=== PATIENT | female | born 1975 | race Caucasian/White ===

== ENCOUNTER 2021-07-04 17:34 | Emergency (ER) | payer MEDICAID ==
[2021-07-04 18:14] LABS: BILIRUBIN,URINE NEGATIVE (NEGATIVE); KETONES,URINE (UA) NEGATIVE (NEGATIVE); PH,URINE 5.5 PH (5.0-7.5); UROBILINOGEN,URINE >=8.0 E.U./dL (NORMAL)
[2021-07-04 18:15] LABS: CLARITY,URINE HAZY (CLEAR)
[2021-07-04 18:25] LABS: BACTERIA,URINE Rare /HPF (None Seen); RBC,URINE TNTC /HPF (0-5); SQUAMOUS EPITHELIAL CELL,UR FEW Squamous (<= Few); WBC,URINE 0-3 /HPF (0-5)
[2021-07-04] MEDS ORDERED: KETOROLAC 30 MG/ML VIAL IVP STA (18:52)
[2021-07-04] MEDS ORDERED: iohexoL-300 100 ML VIAL ONE (19:03)
--- NOTE | 2021-07-04 19:07 | ED Physician Documentation ---
History of Present Illness - Stated complaint Stated Complaint: FEMALE - Chief complaint Chief Complaint: Abd Pain - History obtained from History obtained from: Patient - History of Present Illness Timing: Other (1 month) Pain level max: 6 Pain level now: 5 - Additonal information Additional information: Patient is a 46-year-old female who complains of lower abdominal/pelvic pain along with dysuria for the past month. Has been seen by her PCP several times with multiple negative urinalyses. She states she has been taking Azo and this sometimes helps. No diarrhea or constipation. No vaginal bleeding or discharge. No STD exposure. has been on pyridium for 3 weeks Review of Systems Ten Systems: 10 systems reviewed and negative Constitutional: denies: Fever, Chills Nose: denies: Rhinorrhea / runny nose, Congestion Throat: denies: Sore throat Cardiac: denies: Chest pain / pressure GI: denies: Vomiting, Diarrhea, Hematemesis, Bloody / black stool : reports: Dysuria, Frequency Skin: denies: Rash Musculoskeletal: denies: Neck pain, Back pain Neurologic: denies: Headache PD PAST MEDICAL HISTORY - Past Medical History Past Medical History: Yes - Present Medications Home Medications: Ambulatory Orders Medication Instructions Recorded Confirmed HYDROcod/ACETAM 5/325 [[place] 5/325] 1 - 2 ea PO Q6H PRN #14 tablet 07/04/21 cephALEXin [Keflex] 500 mg PO Q6H #20 cap 07/04/21 - Allergies Allergies/Adverse Reactions: Allergies Allergy/AdvReac Type Severity Reaction Status Date / Time Sulfa (Sulfonamide Allergy Unknown Verified 07/04/21 17:41 Antibiotics) PD ED PE NORMAL - Vitals Vital signs reviewed: Yes - General General: Alert and oriented X 3, No acute distress - HEENT HEENT: PERRL - Neck Neck: Supple, no meningeal sign - Cardiac Cardiac: RRR, Strong equal pulses - Respiratory Respiratory: No respiratory distress, Clear bilaterally - Abdomen Abdomen: Soft, Non tender, Non distended - Back Back: No CVA TTP - Derm Derm: Warm and dry - Extremities Extremities: No edema - Neuro Neuro: Alert and oriented X 3 - Psych Psych: Normal mood, Normal affect Results - Vitals Vitals: Vital Signs - 24 hr 07/04/21 07/04/21 07/04/21 17:41 18:31 20:00 Temperature 36.5 C 36.5 C Heart Rate 120 H 100 98 Respiratory 16 16 18 Rate Blood Pressure 117/93 H 120/87 H 129/88 H O2 Saturation 96 98 100 Oxygen O2 Source Room air - Labs Labs: Laboratory Tests 07/04/21 07/04/21 07/04/21 18:03 18:30 19:20 WBC 12.6 H RBC 4.86 Hgb 14.2 Hct 43.1 MCV 88.7 MCH 29.2 MCHC 32.9 RDW 13.3 Plt Count 375 MPV 9.2 Neut # (Auto) 9.6 H Lymph # (Auto) 2.1 [place] # (Auto) 0.7 Eos # (Auto) 0.1 Baso # (Auto) 0.1 Absolute Nucleated RBC 0.00 Nucleated RBC % 0.0 Sodium Potassium Chloride Carbon Dioxide Anion Gap BUN Creatinine Estimated GFR (MDRD) Glucose Calcium Total Bilirubin AST ALT Alkaline Phosphatase Total Protein Albumin Globulin Albumin/Globulin Ratio Lipase Urine Color ORANGE Urine Clarity HAZY Urine pH 5.5 Ur Specific [place] 1.015 Urine Protein Urine Glucose (UA) Urine Ketones NEGATIVE Urine Occult Blood Urine Nitrite Urine Bilirubin NEGATIVE Urine Urobilinogen >=8.0 H Ur Leukocyte Esterase Urine RBC TNTC H Urine WBC 0-3 Ur Squamous Epith Cells FEW Squamous Urine Bacteria Rare Ur Microscopic Review INDICATED Urine Culture Comments Not Reportable C. glabrata (PCR) NEGATIVE C. krusei (PCR) NEGATIVE Adriana species DNA NEGATIVE T. vaginalis (PCR) NEGATIVE Bact Vaginosis (PCR) NEGATIVE 07/04/21 19:20 WBC RBC Hgb Hct MCV MCH MCHC RDW Plt Count MPV Neut # (Auto) Lymph # (Auto) [place] # (Auto) Eos # (Auto) Baso # (Auto) Absolute Nucleated RBC Nucleated RBC % Sodium 137 Potassium 3.6 Chloride 103 Carbon Dioxide 23 Anion Gap 11.0 BUN 8 Creatinine 0.8 Estimated GFR (MDRD) 78 L Glucose 96 Calcium 8.9 Total Bilirubin 0.5 AST 29 ALT 40 Alkaline Phosphatase 74 Total Protein 7.0 Albumin 4.3 Globulin 2.7 Albumin/Globulin Ratio 1.6 Lipase 26 Urine Color Urine Clarity Urine pH Ur Specific [place] Urine Protein Urine Glucose (UA) Urine Ketones Urine Occult Blood Urine Nitrite Urine Bilirubin Urine Urobilinogen Ur Leukocyte Esterase Urine RBC Urine WBC Ur Squamous Epith Cells Urine Bacteria Ur Microscopic Review Urine Culture Comments C. glabrata (PCR) C. krusei (PCR) Adriana species DNA T. vaginalis (PCR) Bact Vaginosis (PCR) - Rads (name of study) CT abdomen pelvis Radiology: Final report received, EMP read contemporaneously, See rad report PD MEDICAL DECISION MAKING - ED course Complexity details: reviewed results, re-evaluated patient, considered differential, d/w patient ED course: Unclear etiology of the patient's symptoms. She has been on Pyridium for over 3 weeks, we will have her stop this. Given the bladder wall thickening, we will place her on antibiotics to see if this helps. We will have her follow-up with urology for further care. Patient counseled regarding signs and symptoms for which I believe and urgent re-evaluation would be necessary. Patient with good u nderstanding of and agreement to plan and is comfortable going home at this time This document was made in part using voice recognition software. While efforts are made to proofread this document, sound alike and grammatical errors may occur. IMPRESSION: 1. Mild colonic diverticulosis without acute diverticulitis. 2. No evidence of appendicitis. 3. No evidence of obstructive uropathy. 4. Suggestion of mild bladder wall thickening although evaluation is limited by incomplete distention. Recommend correlation with urinalysis for possible cystitis. Departure - Departure Disposition: 01 Home, Self Care Clinical Impression: Pelvic pain Condition: Good Instructions: ED Dysuria Uncertain Cause Follow-Up: Cindy Sin MD [Primary Care Provider] - Within 1 week Prescriptions: cephALEXin [Keflex] 500 mg PO Q6H #20 cap HYDROcod/ACETAM 5/325 [[place] 5/325] 1 - 2 ea PO Q6H PRN #14 tablet PRN Reason: Pain Comments: Please follow-up with your doctor for further care. Your CT scan, bacterial vaginitis panel, urinalysis and laboratory testing did not show any acute abnormalities other than a thickened bladder wall. It is recommended that you follow-up with urology as your condition could be due to something such as interstitial cystitis. Return if you worsen. I am prescribing a short course of narcotic pain medication for you. These are potentially dangerous and addictive medications that should be used carefully. These medications may constipate you. Take an ttzj-guk-edhewrb stool softener (docusate) twice daily with plenty of water while taking these medications. If you go 24 hours without a bowel movement, take edof-qmh-qgqxtaq miralax, per package instructions. Do not drink or drive while taking these medications. If you received narcotic or sedating medications while in the emergency department, do not drive for 24 hours. Store this medication in a safe, secure place and out of reach of children. It is a violation of federal law to give or sell this medication to another person or to use in a manner other than prescribed. The ED will not refill narcotic prescriptions, including prescriptions lost or stolen. To dispose of unwanted medications: 1. [facility] at [address] in [place] has a medication drop box. They accept prescription medications (in pill form) Thursday through Thursday 9:00 a.m. to 5:00 p.m. 2. The [facility] [employer] Department accepts prescription medications (in pill form only) for disposal year round. Call for more information. 3. Contact the [facility] for the next [facility] sponsored prescription drug collection event. , [phone], or [phone];
[2021-07-04 20:01] LABS: BASOPHILS # (AUTO) 0.1 10^3/uL (0.0-0.1); EOSINOPHILS # (AUTO) 0.1 10^3/uL (0.0-0.7); EOSINOPHILS % (AUTO) 0.6 %; HCT - HEMATOCRIT 43.1 % (37.0-47.0); HGB - HEMOGLOBIN 14.2 g/dL (12.0-16.0); LYMPHOCYTES # (AUTO) 2.1 10^3/uL (1.5-3.5); LYMPHOCYTES % (AUTO) 16.4 %; MEAN CORPUSCULAR HEMOGLOBIN 29.2 pg (27.0-31.0); MEAN CORPUSCULAR HGB CONC 32.9 g/dL (32.0-36.0); MEAN CORPUSCULAR VOLUME 88.7 fL (81.0-99.0); MEAN PLATELET VOLUME 9.2 fL (7.9-10.8); MONOCYTES # (AUTO) 0.7 10^3/uL (0.0-1.0); MONOCYTES % (AUTO) 5.9 %; NEUTROPHILS # (AUTO) 9.6 10^3/uL (1.5-6.6); NEUTROPHILS % (AUTO) 75.5 %; PLT - PLATELET COUNT 375 10^3/uL (130-450); RED BLOOD COUNT 4.86 10^6/uL (4.20-5.40); RED CELL DISTRIBUTION WIDTH 13.3 % (12.0-15.0); WHITE BLOOD COUNT 12.6 x10^3/uL (4.8-10.8)
[2021-07-04 20:18] LABS: ALBUMIN 4.3 g/dL (3.2-5.5); ALBUMIN/GLOBULIN RATIO 1.6 (1.0-2.2); BILIRUBIN,TOTAL 0.5 mg/dL (0.2-1.0); CALCIUM 8.9 mg/dL (8.5-10.3); CREATININE 0.8 mg/dL (0.4-1.0); POTASSIUM 3.6 mmol/L (3.5-5.0)
[2021-07-04 21:03] LABS: BACTERIAL VAGINOSIS DNA NEGATIVE (NEGATIVE); CANDIDA GLABRATA DNA NEGATIVE (NEGATIVE); CANDIDA GROUP DNA NEGATIVE (NEGATIVE); CANDIDA KRUSEI DNA NEGATIVE (NEGATIVE); TRICHOMONAS VAGINALIS DNA NEGATIVE (NEGATIVE)
[2021-07-04] MEDS ORDERED: iohexoL-300 100 ML VIAL IVP ONE (21:03)
--- NOTE | 2021-07-04 21:13 | CT Report ---
PROCEDURE: Abdomen/Pelvis W INDICATIONS: LLQ Abdominal pain, diverticulitis suspected CONTRAST: IV CONTRAST: Isovue 300 ml: 100 PO CONTRAST: *NO PO CONTRAST TECHNIQUE: After the administration of postsurgical changes are partially visualized within the lower cervical s pine contrast, 5 mm thick sections acquired from the diaphragms to the symphysis. 5 mm thick coronal and sagittal reformats were acquired. For radiation dose reduction, the following was used: automa suze exposure control, adjustment of mA and/or kV according to patient size. COMPARISON: None. FINDINGS: Image quality: Excellent. ABDOMEN: Lung bases: There are a few patchy areas of atelectasis in the lung bases. Heart size is normal. Solid organs: Evaluation of the liver demonstrates no focal hepatic lesions. Gallbladder appears with in normal limits without calcified gallstones. Biliary system is non dilated. The spleen is normal i n size. Pancreas enhances normally without peripancreatic fat stranding or fluid collections. No adr enal nodules. Kidneys demonstrate no hydronephrosis. No hydroureter or obstructing ureteral stones. There are calcifications in the pelvis bilaterally likely representing phleboliths. Peritoneum and bowel: Small bowel loops demonstrate normal wall thickness and caliber. No evidence of appendicitis. There is moderate colonic stool distention suggestive of constipation. A few colonic d iverticula are present without acute diverticulitis. No free fluid or air. Nodes and vessels: No retroperitoneal or mesenteric adenopathy by size criteria. Aorta and inferior vena cava are normal in size. Miscellaneous: No ventral hernias. PELVIS: Genitourinary: The urinary bladder is partially distended, with suggestion of mild concentric wall th ickening. There is minimal associated fat stranding. Miscellaneous: No inguinal hernias or adenopathy. Bones: No suspicious bony lesions. No vertebral body compression fractures. IMPRESSION: 1. Mild colonic diverticulosis without acute diverticulitis. 2. No evidence of appendicitis. 3. No evidence of obstructive uropathy. 4. Suggestion of mild bladder wall thickening although evaluation is limited by incomplete distention . Recommend correlation with urinalysis for possible cystitis. Reviewed by: Ke Bernard MD on 07/04/2021 9:12 PM PST Approved by: Ke Bernard MD on 07/04/2021 9:12 PM PST Station ID: [id number]
[2021-07-04] MEDS ORDERED: cephALEXin 250 MG CAPSULE PO STA (21:44)
[2021-07-04 22:07] VITALS: BP 123/74
[2021-07-04 23:15] LABS: CHLAMYDIA TRACHOMATIS DNA NEGATIVE (NEGATIVE); NEISSERIA GONORRHOEAE DNA NEGATIVE (NEGATIVE); TRICHOMONAS VAGINALIS DNA NEGATIVE (NEGATIVE)
== END 2021-07-04 22:15 | disposition home or self-care (01) ==
LOC: ED 17:34
DX: R10.2 Pelvic and perineal pain (principal)
CPT/HCPCS: 36415; 74177; 80053; 81001; 83690; 85025; 87481; 87491; 87591; 87661; 87801; 96374; 99284; A9270; Q9967; 81003; 87086

== ENCOUNTER 2021-07-19 16:42 | Emergency (ER) | payer MEDICAID ==
[2021-07-19 17:24] LABS: BASOPHILS # (AUTO) 0.1 10^3/uL (0.0-0.1); EOSINOPHILS # (AUTO) 0.2 10^3/uL (0.0-0.7); EOSINOPHILS % (AUTO) 1.6 %; HCT - HEMATOCRIT 42.7 % (37.0-47.0); HGB - HEMOGLOBIN 13.7 g/dL (12.0-16.0); LYMPHOCYTES # (AUTO) 2.9 10^3/uL (1.5-3.5); LYMPHOCYTES % (AUTO) 28.6 %; MEAN CORPUSCULAR HEMOGLOBIN 28.7 pg (27.0-31.0); MEAN CORPUSCULAR HGB CONC 32.1 g/dL (32.0-36.0); MEAN CORPUSCULAR VOLUME 89.3 fL (81.0-99.0); MEAN PLATELET VOLUME 8.6 fL (7.9-10.8); MONOCYTES # (AUTO) 0.7 10^3/uL (0.0-1.0); NEUTROPHILS # (AUTO) 6.3 10^3/uL (1.5-6.6); PLT - PLATELET COUNT 322 10^3/uL (130-450); RED BLOOD COUNT 4.78 10^6/uL (4.20-5.40); RED CELL DISTRIBUTION WIDTH 13.2 % (12.0-15.0); WHITE BLOOD COUNT 10.3 x10^3/uL (4.8-10.8)
[2021-07-19] MEDS ORDERED: HYDROmorphone 1 MG/ML CARPUJECT IM STA (17:27)
--- NOTE | 2021-07-19 17:30 | ED Physician Documentation ---
History of Present Illness - Stated complaint Stated Complaint: FEMALE - Chief complaint Chief Complaint: Abd Pain - Additonal information Additional information: 46-year-old female presents emergency department for evaluation of persistent bladder pain and dysuria. This has been an ongoing problem for a number of months. Seen recently for similar. Urine did not suggest infection. There is suspicion that she could have interstitial cystitis. Her primary doctor has made a referral for her to urology. She did see the urologist about 1 week ago and the plan is for her to have a cystoscopy completed. However the urologist wanted further labs to be obtained which are pending. Patient states that she is using ibuprofen and Pyridium without relief of symptoms she is now out of hydrocodone. Pain is persistent and radiates to her back. No fevers. Review of Systems Constitutional: denies: Fever, Chills Eyes: reports: Reviewed and negative Ears: reports: Reviewed and negative Nose: reports: Reviewed and negative Cardiac: reports: Reviewed and negative Respiratory: reports: Reviewed and negative GI: reports: Abdominal Pain, Nausea, Vomiting : reports: Dysuria. denies: Hematuria Skin: denies: Rash, Lesions PD PAST MEDICAL HISTORY - Present Medications Home Medications: Ambulatory Orders Medication Instructions Recorded Confirmed HYDROcod/ACETAM 5/325 [[place] 5/325] 1 - 2 ea PO Q6H PRN #14 tablet 07/04/21 cephALEXin [Keflex] 500 mg PO Q6H #20 cap 07/04/21 HYDROcod/ACETAM 5/325 [[place] 5/325] 1 tablet PO BID PRN #10 tablet 07/19/21 - Allergies Allergies/Adverse Reactions: Allergies Allergy/AdvReac Type Severity Reaction Status Date / Time Sulfa (Sulfonamide Allergy Unknown Verified 07/19/21 16:56 Antibiotics) PD ED PE NORMAL - General General: Alert and oriented X 3, No acute distress, Well developed/nourished - HEENT HEENT: Atraumatic, Moist mucous membranes - Neck Neck: Supple, no meningeal sign, No adenopathy - Cardiac Cardiac: RRR, No murmur, No gallop - Respiratory Respiratory: No respiratory distress, Clear bilaterally - Abdomen Abdomen: Normal bowel sounds, Soft, Non tender (Suprapubic tenderness. No guarding or rebound.) Results - Vitals Vitals: Vital Signs - 24 hr 07/19/21 07/19/21 16:56 16:58 Temperature 37.3 C Heart Rate 120 H 125 H Respiratory 19 20 Rate Blood Pressure 154/87 H 126/86 H O2 Saturation 99 98 Oxygen O2 Source Room air - Labs Labs: Laboratory Tests 07/19/21 07/19/21 07/19/21 17:15 17:17 17:17 WBC 10.3 RBC 4.78 Hgb 13.7 Hct 42.7 MCV 89.3 MCH 28.7 MCHC 32.1 RDW 13.2 Plt Count 322 MPV 8.6 Neut # (Auto) 6.3 Lymph # (Auto) 2.9 [place] # (Auto) 0.7 Eos # (Auto) 0.2 Baso # (Auto) 0.1 Absolute Nucleated RBC 0.00 Nucleated RBC % 0.0 Sodium 135 Potassium 3.4 L Chloride 101 Carbon Dioxide 24 Anion Gap 10.0 BUN 9 Creatinine 0.8 Estimated GFR (MDRD) 78 L Glucose 91 Calcium 9.1 Total Bilirubin 0.5 AST 30 ALT 41 Alkaline Phosphatase 67 Total Protein 7.1 Albumin 4.3 Globulin 2.8 Albumin/Globulin Ratio 1.5 Lipase 26 Urine Color ORANGE Urine Clarity HAZY Urine pH Ur Specific [place] 1.025 Urine Protein Urine Glucose (UA) Urine Ketones Urine Occult Blood NEGATIVE Urine Nitrite Urine Bilirubin NEGATIVE Urine Urobilinogen Ur Leukocyte Esterase Urine RBC 0-5 Urine WBC 0-3 Ur Squamous Epith Cells MOD Squamous H Urine Bacteria Few Ur Microscopic Review INDICATED Urine Culture Comments Not Reportable Urine HCG, Qual NEGATIVE PD MEDICAL DECISION MAKING - ED course Complexity details: reviewed results, re-evaluated patient, d/w patient ED course: 46-year-old female presents emergency department with persistent lower bladder pain. She was seen recently for similar. Had an unremarkable urine. CT scan showed some bladder inflammation. She was prescribed some Keflex which it did not Improve her symptoms. She has followed up with the urologist. They are planning to do a cystoscopy. Today her screening labs Showed no acute worrisome findings. No findings suggest infection in the urine. Given recently unremarkable CT scan will defer further imaging today. Very limited amount of hydrocodone has been sent to the [facility] pharmacy. Patient was made aware that the emergency department would not refill this again for this concern. She is encouraged close follow-up with her primary care doctor as well as her urologist. Emergent return precautions otherwise discussed. Departure - Departure Disposition: 01 Home, Self Care Clinical Impression: Dysuria Condition: Stable Record reviewed to determine appropriate education?: Yes Instructions: Cystitis Interstitial, Cystitis Interstitial Life Changes Prescriptions: HYDROcod/ACETAM 5/325 [[place] 5/325] 1 tablet PO BID PRN #10 tablet PRN Reason: Pain Comments: Soraya alan are seen in the emergency department today for lower abdominal and bladder pain. As we discussed at the bedside this sounds a lot like interstitial cystitis. I am glad that you have been seen by urologist. Continue very close follow-up. Your labs today do not show any worrisome findings. A very limited amount of hydrocodone has been sent to the [facility] pharmacy. The emergency department will not be able to refill this again in the future. I encourage you to discuss your longer-term pain management with your primary doctor. I am prescribing a short course of narcotic pain medication for you. These are potentially dangerous and addictive medications that should be used carefully. These medications may constipate you. Take an azjl-nij-qsixtnf stool softener (docusate) twice daily with plenty of water while taking these medications. If you go 24 hours without a bowel movement, take kbmt-ruc-kxnkqug miralax, per package instructions. Do not drink or drive while taking these medications. If you received narcotic or sedating medications while in the emergency department, do not drive for 24 hours. Store this medication in a safe, secure place and out of reach of children. It is a violation of federal law to give or sell this medication to another person or to use in a manner other than prescribed. The ED will not refill narcotic prescriptions, including prescriptions lost or stolen. To dispose of unwanted medications: 1. [facility] at [address] in [place] has a medication drop box. They accept prescription medications (in pill form) Thursday through Thursday 9:00 a.m. to 5:00 p.m. 2. The [facility] Police Department accepts prescription medications (in pill form only) for disposal year round. Call for more information. 3. Contact the [facility] for the next [facility] sponsored prescription drug collection event. , [id number], or [id number]; Note that many narcotic pain relievers also contain Tylenol/acetaminophen. Please ensure that your total dose of acetaminophen from all sources does not exceed 3 g (3000 mg) per day.
[2021-07-19 17:37] LABS: ALBUMIN 4.3 g/dL (3.2-5.5); ALBUMIN/GLOBULIN RATIO 1.5 (1.0-2.2); BILIRUBIN,TOTAL 0.5 mg/dL (0.2-1.0); CALCIUM 9.1 mg/dL (8.5-10.3); CREATININE 0.8 mg/dL (0.4-1.0); POTASSIUM 3.4 mmol/L (3.5-5.0); TOTAL PROTEIN 7.1 g/dL (6.7-8.2)
[2021-07-19 17:52] LABS: BILIRUBIN,URINE NEGATIVE (NEGATIVE); OCCULT BLOOD,URINE NEGATIVE (NEGATIVE)
[2021-07-19 17:54] LABS: CLARITY,URINE HAZY (CLEAR)
[2021-07-19 18:11] LABS: BACTERIA,URINE Few /HPF (None Seen); HCG UR QUAL NEGATIVE; RBC,URINE 0-5 /HPF (0-5); SQUAMOUS EPITHELIAL CELL,UR MOD Squamous (<= Few); WBC,URINE 0-3 /HPF (0-5)
[2021-07-19 18:35] VITALS: BP 137/109
== END 2021-07-19 18:43 | disposition home or self-care (01) ==
LOC: ED 16:42
DX: R30.0 Dysuria (principal)
CPT/HCPCS: 36415; 80053; 81001; 81025; 83690; 85025; 96372; 99282; 99283; J1170; 81003; 87086

== ENCOUNTER 2021-12-11 08:00 | Outpatient (CLI) | payer MEDICAID | END 2021-12-11 23:59 | disposition home or self-care (01) | LOC: LAB.N 08:00 | PROVIDERS: ATTEND Family Medicine | DX: R30.0 Dysuria (principal) | CPT/HCPCS: 87086; 87181 ==

== ENCOUNTER 2022-11-13 20:42 | Emergency (ER) | payer MEDICAID ==
[2022-11-13 20:50] VITALS: BP 127/82
[2022-11-13] MEDS ORDERED: DEXAMETHASONE 10 MG/ML VIAL PO STA (21:11)
[2022-11-13] MEDS ORDERED: CHERRY SYRUP 10 ML UDC PO ONE (21:11)
--- NOTE | 2022-11-13 21:14 | ED Physician Documentation ---
History of Present Illness - Stated complaint Stated Complaint: ALLERGIC REACTION - Chief complaint Chief Complaint: General - History obtained from History obtained from: Patient, Family () - Additonal information Additional information: 47-year-old woman with history of multiple food allergies and drug allergies presents presents with urticarial rash to bilateral forearms as well as tingling and subjective swelling to lips starting just prior to arrival. Patient took 50 mg of Benadryl at home and then came straight here. Denies shortness of breath, nausea, vomiting, dizziness. She does experience some tingling in her feet but no rash. Review of Systems Constitutional: denies: Fever Cardiac: denies: Chest pain / pressure Respiratory: denies: Dyspnea, Wheezing GI: denies: Nausea, Vomiting Skin: reports: Rash PD PAST MEDICAL HISTORY - Past Medical History Past Medical History: No - Past Surgical History Past Surgical History: No - Present Medications Home Medications: Ambulatory Orders Medication Instructions Recorded Confirmed HYDROcod/ACETAM 5/325 [[place] 5/325] 1 - 2 ea PO Q6H PRN #14 tablet 07/04/21 cephALEXin [Keflex] 500 mg PO Q6H #20 cap 07/04/21 HYDROcod/ACETAM 5/325 [[place] 5/325] 1 tablet PO BID PRN #10 tablet 07/19/21 - Allergies Allergies/Adverse Reactions: Allergies Allergy/AdvReac Type Severity Reaction Status Date / Time Sulfa (Sulfonamide Allergy Unknown Verified 11/13/22 20:50 Antibiotics) - Social History Does the pt smoke?: No Smoking Status: Never smoker Does the pt drink ETOH?: No Does the pt have substance abuse?: No - Immunizations Immunizations are current?: Yes PD ED PE NORMAL - Vitals Vital signs reviewed: Yes - General General: Alert and oriented X 3, No acute distress, Well developed/nourished - HEENT HEENT: Atraumatic, PERRL, EOMI, Other (Good upper airway flow on neck auscultation) - Neck Neck: Supple, no meningeal sign - Cardiac Cardiac: RRR - Respiratory Respiratory: No respiratory distress, Clear bilaterally - Abdomen Abdomen: Other (no rash) - Back Back: Other (no rash) - Derm Derm: Other (erythematous rash and excoriations to BL forearms. ) - Extremities Extremities: No edema - Psych Psych: Normal mood, Normal affect Results - Vitals Vitals: Vital Signs - 24 hr 11/13/22 20:44 Temperature 36.5 C Heart Rate 110 H Respiratory 17 Rate Blood Pressure 127/82 H O2 Saturation 99 Oxygen O2 Source Room air PD Medical Decision Making - ED course ED course: 47-year-old woman presents with allergic reaction, possibly to avocado which she had earlier today and she states she is "slightly allergic to". She has visible rash to bilateral forearms as well as excoriations but no rash anywhere else. She states that her lips feel swollen but they are not visibly swollen. Tongue appears normal on exam. Will provide steroid one-time dose in addition to the Benadryl she did at home and monitor. Plan to discharge if feeling better with outpatient follow-up. Return precautions given. Departure - Departure Condition: Good Instructions: ED Urticaria Comments: You were seen in the emergency department for a rash that is likely an allergic reaction. You received 10 mg of oral Decadron, a steroid one-time medication that will stay in your system for 3 days. You should follow-up with your primary care provider for referral to allergy and immunology. Return to the emergency department for new or worsening symptoms or other concerns.
== END 2022-11-13 21:57 | disposition home or self-care (01) ==
LOC: ED 20:42
DX: L50.9 Urticaria, unspecified (principal)
CPT/HCPCS: 99282; 99283; A9270

== ENCOUNTER 2023-03-02 17:59 | Emergency (ER) | payer MEDICAID ==
[2023-03-02] MEDS ORDERED: KETOROLAC 60 MG/2 ML VIAL IM STA (19:05)
[2023-03-02] MEDS ORDERED: DROPERIDOL 5 MG/2 ML VIAL IM STA (19:05)
--- NOTE | 2023-03-02 19:15 | ED Physician Documentation ---
History of Present Illness - Stated complaint Stated Complaint: MCDONALD - Chief complaint Chief Complaint: Neuro - History obtained from History obtained from: Patient - History of Present Illness Pain level max: 10 Pain level now: 10 - Additonal information Additional information: 41-year-old female with a longstanding history of migraine headaches. Presents to the emergency department with a headache that started 3 days ago. Unable to resolve the headache at home. She is on rizatriptan at home. Gradual onset, mainly on the left side. Consistent with her prior headaches. No fevers. No trauma. Review of Systems Constitutional: denies: Fever, Chills Eyes: reports: Photophobia. denies: Loss of vision Ears: denies: Ear pain Cardiac: denies: Chest pain / pressure, Palpitations Respiratory: denies: Cough GI: denies: Abdominal Pain, Diarrhea, Hematemesis, Bloody / black stool : denies: Now EGA Skin: denies: Rash PD PAST MEDICAL HISTORY - Past Medical History Past Medical History: Yes Neuro: Migraines - Past Surgical History Past Surgical History: No - Present Medications Home Medications: Ambulatory Orders Medication Instructions Recorded Confirmed Levothyroxine Sodium 137 mcg PO DAILY 11/13/22 11/13/22 [Levothyroxine] Nortriptyline HCl [Pamelor] 50 mg PO DAILY 11/13/22 11/13/22 Prazosin [Minipress] 2 mg PO HS 11/13/22 11/13/22 - Allergies Allergies/Adverse Reactions: Allergies Allergy/AdvReac Type Severity Reaction Status Date / Time ondansetron [From Zofran] Allergy Emesis Verified 03/02/23 18:02 Sulfa (Sulfonamide Allergy Unknown Verified 03/02/23 18:02 Antibiotics) - Social History Does the pt smoke?: No Smoking Status: Never smoker Does the pt drink ETOH?: No Does the pt have substance abuse?: No - Immunizations Immunizations are current?: Yes PD ED PE NORMAL - Vitals Vital signs reviewed: Yes - General General: Alert and oriented X 3, Other (Patient appears, uncomfortable, sitting in a dark room with her eyes closed.) - HEENT HEENT: Atraumatic, PERRL, EOMI, Ears normal, Moist mucous membranes, Pharynx benign - Neck Neck: Supple, no meningeal sign, No JVD, No bruit - Cardiac Cardiac: RRR, Strong equal pulses - Respiratory Respiratory: No respiratory distress, Clear bilaterally - Abdomen Abdomen: Soft, Non tender, Non distended - Derm Derm: Warm and dry - Neuro Neuro: Alert and oriented X 3, 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 2-12 intact, No motor deficit, No sensory deficit, Normal speech Eye Opening: Spontaneous Motor: Obeys Commands Verbal: Oriented GCS Score: 15 - Psych Psych: Normal mood, Normal affect Results - Vitals Vitals: Vital Signs - 24 hr 03/02/23 03/02/23 18:02 20:34 Temperature 36.7 C Heart Rate 120 H 96 Respiratory 16 16 Rate Blood Pressure 130/100 H 127/95 H O2 Saturation 99 100 Oxygen O2 Source Room air PD Medical Decision Making - ED course Complexity details: re-evaluated patient, considered differential, d/w patient, d/w family ED course: Patient with chronic migraine headaches, her symptoms today are consistent with a migraine. She had a gradual onset of the headache, no evidence of subarachnoid hemorrhage. No indication for emergent neuro imaging. She was given Toradol and droperidol. Headache resolved. Patient request to go home at this time. She will follow up with her doctor for further care. Patient counseled regarding signs a nd symptoms for which I believe and urgent re-evaluation would be necessary. Patient with good understanding of and agreement to plan and is comfortable going home at this time. This document was made in part using voice recognition software. While efforts are made to proofread this document, sound alike and grammatical errors may occur. Departure - Departure Disposition: 01 Home, Self Care Clinical Impression: Migraine Qualifiers: Migraine type: unspecified Status migrainosus presence: without status migrainosus Intractability: not intractable Qualified Code(s): G43.909 - Migraine, unspecified, not intractable, without status migrainosus Condition: Good Instructions: ED Headache Migraine Follow-Up: your,doctor in 1 week [Other] Comments: You were given Toradol and droperidol today. Please follow-up with your doctor for further care. Please return if you worsen. Forms: PCP List Discharge Date/Time: 03/02/23 20:35
[2023-03-02 20:37] VITALS: BP 127/95; O2SAT 100
== END 2023-03-02 20:35 | disposition home or self-care (01) ==
LOC: ED 17:59
DX: G43.909 Migraine, unspecified, not intractable, without status migrainosus (principal)
CPT/HCPCS: 96372; 99283

== ENCOUNTER 2023-05-22 17:59 | Emergency (ER) | payer MEDICAID ==
[2023-05-22 18:15] VITALS: BP 141/73; O2SAT 97
[2023-05-22 18:44] LABS: BASOPHILS # (AUTO) 0.1 10^3/uL (0.0-0.1); BASOPHILS % (AUTO) 0.7 %; EOSINOPHILS # (AUTO) 0.1 10^3/uL (0.0-0.7); EOSINOPHILS % (AUTO) 1.2 %; HCT - HEMATOCRIT 41.6 % (37.0-47.0); HGB - HEMOGLOBIN 13.4 g/dL (12.0-16.0); LYMPHOCYTES # (AUTO) 2.9 10^3/uL (1.5-3.5); LYMPHOCYTES % (AUTO) 31.9 %; MEAN CORPUSCULAR HEMOGLOBIN 27.9 pg (27.0-31.0); MEAN CORPUSCULAR HGB CONC 32.2 g/dL (32.0-36.0); MEAN CORPUSCULAR VOLUME 86.5 fL (81.0-99.0); MEAN PLATELET VOLUME 9.5 fL (7.9-10.8); MONOCYTES # (AUTO) 0.8 10^3/uL (0.0-1.0); MONOCYTES % (AUTO) 8.4 %; NEUTROPHILS # (AUTO) 5.2 10^3/uL (1.5-6.6); NEUTROPHILS % (AUTO) 57.5 %; PLT - PLATELET COUNT 346 10^3/uL (130-450); RED BLOOD COUNT 4.81 10^6/uL (4.20-5.40); RED CELL DISTRIBUTION WIDTH 13.4 % (12.0-15.0); WHITE BLOOD COUNT 9.1 x10^3/uL (4.8-10.8)
[2023-05-22 19:04] LABS: ALBUMIN 4.3 g/dL (3.2-5.5); ALBUMIN/GLOBULIN RATIO 1.9 (1.0-2.2); BILIRUBIN,TOTAL 0.4 mg/dL (0.2-1.0); CALCIUM 9.7 mg/dL (8.5-10.3); CREATININE 0.7 mg/dL (0.6-1.3); POTASSIUM 3.5 mmol/L (3.5-4.5); TOTAL PROTEIN 6.6 g/dL (6.4-8.9)
== END 2023-05-22 20:29 | disposition left against medical advice (07) ==
LOC: ED 17:59
DX: Z53.21 Procedure and treatment not carried out due to patient leaving prior to being seen by health care provider (principal)
CPT/HCPCS: 36415; 80053; 83690; 85025

== ENCOUNTER 2023-11-13 11:06 | Emergency (ER) | payer MEDICAID ==
--- NOTE | 2023-11-13 11:21 | ED Physician Documentation ---
History of Present Illness - Stated complaint Stated Complaint: Right upper arm/shoulder pain - Chief complaint Chief Complaint: Ext Problem - Additonal information Additional information: 48-year-old female with history of breast cancer currently in remission underwent breast reconstructive surgery about 2 weeks ago. She says that she has been overall doing fairly well but has been having to sleep on her back which is new for her and started experiencing right upper extremity pain couple days ago and has increased in severity today. Patient says it starts almost in her bicep area and with minimal to no movement pain radiates to her shoulder and lower arm. There is been no trauma no obvious signs of injury to the right upper extremity no recent fevers or chills. 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 - Present Medications Home Medications: Ambulatory Orders Medication Instructions Recorded Confirmed Levothyroxine Sodium 137 mcg PO DAILY 11/13/22 11/13/22 [Levothyroxine] Nortriptyline HCl [Pamelor] 50 mg PO DAILY 11/13/22 11/13/22 Prazosin [Minipress] 2 mg PO HS 11/13/22 11/13/22 Amitriptyline [Elavil] 25 mg PO HS #7 tablet 11/13/23 Cyclobenzaprine [Flexeril] 10 mg PO TID PRN 6 Days #20 tablet 11/13/23 Gabapentin [Neurontin] 100 mg PO TID 5 Days #15 cap 11/13/23 - Allergies Allergies/Adverse Reactions: Allergies Allergy/AdvReac Type Severity Reaction Status Date / Time Fruit Allergy Anaphylaxis Verified 11/13/23 11:11 ondansetron [From Zofran] Allergy Emesis Verified 11/13/23 11:11 Sulfa (Sulfonamide Allergy Unknown Verified 11/13/23 11:11 Antibiotics) - Social History Does the pt smoke?: No Smoking Status: Never smoker Does the pt drink ETOH?: No Does the pt have substance abuse?: No Substance Use and Type: Marijuana - Immunizations Immunizations are current?: Yes PD ED PE NORMAL - Vitals Vital signs reviewed: Yes - General General: Alert and oriented X 3, No acute distress, Well developed/nourished - Back Back: No CVA TTP, No spinal TTP - Derm Derm: Normal color, Warm and dry, No rash - Free text exam Free text exam: Right upper extremity: Musculoskeletal tenderness with palpation to the right subscapular region, no skin abnormalities positive radial pulses CMS intact, limited range of motion to right shoulder due to tenderness no crepitus PD ED PE EXPANDED - Extremities Extremities: Right shoulder, Right arm, Motor intact, Sensory intact, Vascular intact. No: Decreased/absent pulse Results - Vitals Vitals: Vital Signs - 24 hr 11/13/23 11/13/23 11:11 13:48 Temperature 36.7 C Heart Rate 97 95 Respiratory 20 20 Rate Blood Pressure 136/94 H 155/80 H O2 Saturation 98 99 Oxygen O2 Source Room air PD Medical Decision Making - ED course ED course: 48-year-old female presents emerged part for right shoulder/right upper arm pain. Differentials include but not limited to DVT, nerve impingement, musculoskeletal strain. Physical exam is overall unremarkable. Patient does have some limited range of motion there is no 1 specific pinpoint tenderness that triggers the pain or patient making it difficult to consider doing a injection. Patient was given a multitude of different medications in the ER to help with her pain including Toradol injection, Flexeril, gabapentin, Zofran, oxycodone. Patient regular, she is allergic to Zofran and gabapentin due to nausea I asked her if she To try in the ER if she was not she is able to tolerate without any nausea or vomiting. Port seem to be the most effective for patient pain was right shoulder sling and gabapentin. I believe that patient is experiencing this pain due to having to sleep in different position as well as frequent clenching. When I try to help the patient do some breathing exercises to relax the tension that she is holding that right shoulder patient comes quite hostile and verbally aggressive yelling at me tell me that she cannot deal with only thing right now because of all the other pain that she is in. I tried to emphasize to the patient inform her that I am sorry for the pain that she is experiencing but which is trying to help her with some breathing techniques. At discharge I decided to not give patient prescription for narcotics as oxycodone did not seem to be working in the ER patient also became quite hostile and very agitated about this as well. I told her that the gabapentin seem to be working best for this nerve pain and this prescription was sent to her preferred pharmacy as well as a Flexeril prescription and a amitriptyline to help patient's sleep. She is told to follow-up with her primary care provider for physical therapy referral. Patient given return precautions all questions answered at this point in time patient safe for discharge. Departure - Departure Disposition: 01 Home, Self Care Clinical Impression: Nerve pain, Right arm pain, Cervical radiculopathy Instructions: ED Cervical Radiculopathy Prescriptions: Amitriptyline [Elavil] 25 mg PO HS #7 tablet Cyclobenzaprine [Flexeril] 10 mg PO TID PRN 6 Days #20 tablet PRN Reason: Spasms Gabapentin [Neurontin] 100 mg PO TID 5 Days #15 cap Comments: The pain you are experiencing in your right shoulder and right upper extremity is due to nerve pain. We have placed you in a shoulder sling to help with trying to get some the inflammation of the right upper shoulder. We have given you a multitude of medications in the emergency department to help with the pain that you are experiencing. Going home you can take 500 mg of Aleve every 12 hours, 1000 mg of Tylenol every 8 hours. I am also sending you home with a prescription called amitriptyline you can take 25 mg nightly do not take this in combination with the prescription of Flexeril and gabapentin that I am giving you. You can take gabapentin as well as Flexeril up to 3 times a day as a muscle relaxer and to help with the nerve pain that you are experiencing. Please help with your primary care provider for possible physical therapy refe rral. Please come back to the ER if you are experiencing any worsening pain or any other concerning emergent symptoms. Forms: PCP List Discharge Date/Time: 11/13/23 13:58
[2023-11-13] MEDS: CYCLOBENZAPRINE 10 MG TABLET PO STA (11:45)
[2023-11-13] MEDS: oxyCODONE 5 MG TABLET PO STA (12:07)
[2023-11-13] MEDS: KETOROLAC 30 MG/ML VIAL IM STA (12:08)
[2023-11-13] MEDS: ONDANSETRON ODT 4 MG TABLET TL STA (12:53)
[2023-11-13] MEDS: GABAPENTIN 100 MG CAPSULE PO STA (12:53)
[2023-11-13 13:55] VITALS: BP 155/80; O2SAT 99
== END 2023-11-13 13:58 | disposition home or self-care (01) ==
LOC: ED 11:06
DX: M79.621 Pain in right upper arm (principal); M54.12 Radiculopathy, cervical region; Z90.10 Acquired absence of unspecified breast and nipple; Z85.3 Personal history of malignant neoplasm of breast
CPT/HCPCS: 96372; 99283; A9270; Q0162

== ENCOUNTER 2024-01-08 16:30 | Outpatient (CLI) | payer MEDICAID ==
--- NOTE | 2024-01-08 16:53 | XRAY Report ---
PROCEDURE: Chest 2V INDICATIONS: UPPER RESPIRATORY INFECTION,VIRAL TECHNIQUE: 2 views of the chest were acquired. COMPARISON: None. FINDINGS: Surgical changes and devices: None. Lungs and pleura: No pleural effusions or pneumothorax. Lungs are clear. Mediastinum: Mediastinal contours appear normal. Heart size is normal. Bones and chest wall: No suspicious bony lesions. Overlying soft tissues appear unremarkable. IMPRESSION: No acute cardiopulmonary process. Reviewed by: Meena Rollins MD on 01/08/2024 4:52 PM PDT Approved by: Meena Rollins MD on 01/08/2024 4:52 PM PDT Station ID: [id number]
== END 2024-01-08 16:31 | disposition home or self-care (01) ==
LOC: DI 16:30
PROVIDERS: ATTEND Physician Assistant
DX: J06.9 Acute upper respiratory infection, unspecified (principal)